=== PATIENT | female | born 1975 | race Two or more races ===

== ENCOUNTER 2023-03-15 06:43 | Day surgery (SDC) | payer OTHER ==
[~2023-03-15] VITALS: Ht 167.6 cm; Wt 61.2 kg
[2023-03-15] MEDS ORDERED: TRAM1TAB98 PO (13:22)
== END 2023-03-15 14:50 | disposition home or self-care (01) ==
LOC: CIR.AMB 06:43
PROVIDERS: ATTEND Surgery
DX: C50.912 Malignant neoplasm of unspecified site of left female breast (principal); Z80.3 Family history of malignant neoplasm of breast; I10 Essential (primary) hypertension; Z20.822 Contact with and (suspected) exposure to COVID-19

== ENCOUNTER 2023-10-11 06:58 | Day surgery (SDC) | payer OTHER ==
[2023-10-10 10:15] LABS: HEMATOCRIT 32.4 % (36.0-45.00); HEMOGLOBIN 11.1 g/dL (12.0-15.00); MEAN CELL VOLUME 87.6 fL (80.00-100.00); MEAN CORPUSCULAR HEMOGLOBIN 29.9 pg (27.00-32.0); MEAN CORPUSCULAR HGB CONC 34.1 g/dl (32.0-36.0); PLATELET COUNT 377 K/uL (150-450); RED CELL DISTRIBUTION WIDTH 16.4 % (11.5-14.5)
[2023-10-10 10:22] LABS: URINE APPEARANCE Clear; URINE BILIRRUBIN Negative (NEGATIVE); URINE BLOOD Negative; URINE COLOR Dark Yellow; URINE GLUCOSE Negative (NEGATIVE); URINE LEUKOCYTE Trace; URINE NITRATE Negative; URINE PROTEIN Trace (NEGATIVE)
[2023-10-10 10:27] LABS: URINE BACTERIA 35.2 uL (0.0-1933); URINE EPITHELIAL CELLS 10.1 uL (0.0-38.8); URINE RBC 14.3 uL (0.0-20.8); URINE WBC 37.2 uL (0.0-23.2)
[2023-10-10 10:36] LABS: INR 1.03; PARTIAL THROMBOPLASTIN TIME 29.9 SECONDS (22.0-34.0); PROTHROMBIN TIME 10.8 SECONDS (9.0-11.5)
[2023-10-10 10:37] LABS: ALBUMIN 3.3 gm/dL (3.4-5.0); BILIRUBIN TOTAL 0.45 mg/dL (0.3-1.2); CALCIUM 9.5 mg/dL (8.5-10.1); CREATININE SERUM 0.46 mg/dL (0.55-1.02); GFR 146.24; GLOBULINA 2.8 G/DL (2.4-3.5); POTASSIUM 4.15 mEq/L (3.5-5.1); TOTAL PROTEIN 6.1 gm/dL (6.4-8.2)
[2023-10-10 10:45] LABS: URINE CRYSTALS MODERATE /HPF
[~2023-10-11] VITALS: Ht 167.6 cm; Wt 48.1 kg
[~2023-10-11 06:58] MED LIST: TRAM1TAB98 PO
[2023-10-11] MEDS ORDERED: POVIDONE-IODINE 118 ML BOTT TOP ONE (13:35)
[2023-10-11] MEDS ORDERED: GENTAMICIN SULFATE 40 MG/ML VIAL ONE (13:35)
[2023-10-11] MEDS ORDERED: CEFAZOLIN SODIUM 1,000 MG VIAL ONE (13:35)
[2023-10-11] MEDS ORDERED: BUPIVACAINE HCL/PF 0.5% 30ML ML ONE (13:35)
[2023-10-11] MEDS ORDERED: POVIDONE-IODINE SCRUB 118 ML BOTT TOP ONE (13:35)
[2023-10-11] MEDS ORDERED: CLINDAMYCIN PHOSPHATE 150 MG/ML (900mg) ONE (13:51)
[2023-10-11] MEDS ORDERED: CHLORHEXIDINE GLUCONATE 120 ML BOTTLE TOP ONE (13:59)
[2023-10-11] MEDS ORDERED: NITROGLYCERIN 1 INCH OINT..GM. TD ONE ×2 (15:22→16:15)
[2023-10-15] MEDS ORDERED: CEFAZOLIN SODIUM 1,000 MG VIAL IV SCH (12:00)
[2023-10-15] MEDS ORDERED: POVIDONE-IODINE SCRUB 118 ML BOTT TOP SCH (12:00)
[2023-10-15] MEDS ORDERED: POVIDONE-IODINE 118 ML BOTT TOP SCH (12:00)
[2023-10-15] MEDS ORDERED: CLINDAMYCIN PHOSPHATE 150 MG/ML (900mg) IV SCH (12:00)
== END 2023-10-12 02:30 | disposition home or self-care (01) ==
LOC: CIR.AMB 06:58
PROVIDERS: ATTEND Surgery
DX: C50.412 Malignant neoplasm of upper-outer quadrant of left female breast (principal); R59.0 Localized enlarged lymph nodes; Z88.0 Allergy status to penicillin; Z90.13 Acquired absence of bilateral breasts and nipples; D48.61 Neoplasm of uncertain behavior of right breast

== ENCOUNTER 2025-04-16 07:00 | Day surgery (SDC) | payer OTHER ==
[2025-04-12 12:01] VITALS: BP 131/81
[~2025-04-16] VITALS: Ht 167.6 cm; Wt 52.2 kg
[~2025-04-16 07:00] MED LIST changes: +VANCOMYCIN HCL 1,000 MG VIAL IV SCH
[2025-04-16] MEDS ORDERED: VANCOMYCIN HCL 1,000 MG VIAL ONE (07:01)
[2025-04-16] MEDS ORDERED: BUPIVACAINE HCL/MPF 0.5% 30ML VIAL ONE (07:07)
[2025-04-16] MEDS ORDERED: POVIDONE-IODINE 118 ML BOTT TOP ONE (07:07)
[2025-04-16] MEDS ORDERED: LIDOCAINE HCL 1%/EPINEPHRINE 20ML VIAL IJ ONE (07:08)
[2025-04-16] MEDS ORDERED: TRAM1TAB98 PO (08:38)
== END 2025-04-16 10:40 | disposition home or self-care (01) ==
LOC: CIR.AMB 07:00
PROVIDERS: ATTEND Surgery
DX: T82.594A Other mechanical complication of infusion catheter, initial encounter (principal); C50.112 Malignant neoplasm of central portion of left female breast